=== PATIENT | male | born 1940 | race Caucasian/White ===

== ENCOUNTER 2016-12-30 11:12 | Outpatient (CLI) | payer MEDICARE, OTHER ==
[~2016-12-30] VITALS: Ht 167.6 cm; Wt 61.4 kg
--- NOTE | ~2016-12-30 | HEMODYNAMI ---
PATIENT:ELIUD POLO MEDICAL RECORD: [id number] : 44 LOCATION:[facility] ADMISSION DATE: 12/30/16 Generatedon:12/30/201613:35 Patient name: ELIUD POLO Patient #: [id number] SSN: : 1940 Date of study: 12/30/2016 Page: Of Hemodynamic Procedure Report Patient Data Patient Demographics Procedure consent was obtained First Name: ELIUD Gender: Male Last Name: CHRIST : 1940 [facility] Initial: MILTON Age: 76 year(s) Patient #: [id number] Race: Unknown Additional ID: [id number] Contact details [address]: [address] [place] [address] State: [place] City: [place] Zip code: [address] Past Medical History Allergies: No known allergies Admission Admission Data Admission Date: 12/30/2016 Admission Time: 11:12 Lab Results Lab Result Date: 12/30/2016 Lab Result Time: 0:00 Biochemistry Name Units Result Min Max BUN mg/dl 21 --(----)-* 7 18 Creatinine mg/dl 1.4 --(----)*- 0.6 1.3 CBC Name Units Result Min Max Hemoglobin g/dl 11.2 *-(----)-- 13.5 17.5 Procedure Procedure Types Cath Procedure Diagnostic Procedure LHC LH w/Coronaries Miscellaneous Procedures Moderate Sedation up to 15 minutes Procedure Description Procedure Date Procedure Date: 12/30/2016 Procedure Start Time: 13:22 Procedure End Time: 13:29 Procedure Staff Name Function Patricio Tripp MD Performing Physician Merry Mustafa RN Nurse Luis A Gaona RT Monitor Refugio Sanchez RT Scrub Procedure Data Cath Procedure Fluoroscopy Diagnostic fluoroscopy Total fluoroscopy Time: 1.9 time: 1.9 min min Diagnostic fluoroscopy Total fluoroscopy dose: 306 dose: 306 mGy mGy Contrast Material Contrast Material Type Amount (ml) Isovue 300 56 Entry Location Entry Primary Successful Side Size Upsize Upsize Entry Closure Alonzo ccessful Closure Location (Fr) 1 (Fr) 2 (Fr) Remarks Device Remarks Radial Right 6 Fr Mechanical artery Short Compression Diagnostic catheters Device Type Used For End Catheter Placement Terumo 5Fr Akira 110cm LV Angiography catheter Procedure Complications No complications Procedure Medications Medication Administration Route Dosage Oxygen NC 2 l/min Heparin Flush Bag added to field 2 bags (1000units/500ml NS) Lidocaine 2% added to field 20 Radial Cocktail added to field 1 syringe (Verapomil 2mg/Nitro 400mcg/Heparin 1500units) Fentanyl I.V. 50 mcg Versed I.V. 1 mg Radial Cocktail I.A. 1 syringe (Verapomil 2mg/Nitro 400mcg/Heparin 1500units) Fentanyl I.V. 50 mcg Versed I.V. 1 mg Hemodynamics Rest HGB: 11.2 (g/dl) Heart Rate: 64 (bpm) Pressure Samples Time Site Value (mmHg) Purpose Heart Use Rate(bpm) 13:24 LV 91/13,4 EDP 117 13:24 AO 107/36(62) Pullback 69 13:24 LV 114/0,4 Pullback 69 Gradients Valve Time Site 1 Site 2 Mean SEP/DFP Peak To Heart Use (mmHg) (sec/min) Peak Rate (mmHg) (bpm) Aortic 13:24 LV AO 6 19 7 69 114/0,4 107/36(62) Calculations Valve P-P Mean Valve Index Valve Source Name Gradient Area Flow (cm2) Aortic 7 6 7 6 Snapshots Pre Cath Intra NCS Post Cath Vital Signs Time Heart Resp SPO2 NIBP (mmHg) Rhythm Pain Sedation Rate (ipm) (%) Status Level (bpm) 12:57:43 64 20 99 162/68(123) NSR 0 (11) 10(A) , No pain 13:02:05 65 20 98 174/74(132) NSR 0 (11) 10(A) , No pain 13:06:33 58 18 100 154/63(119) NSR 0 (11) 10(A) , No pain 13:11:53 57 19 100 142/61(119) NSR 0 (11) 10(A) , No pain 13:16:11 64 17 98 154/61(124) NSR 0 (11) 10(A) , No pain 13:20:33 62 18 99 140/60(115) NSR 0 (11) 10(A) , No pain 13:24:53 78 16 100 122/51(85) NSR 0 (11) 9(A) , No pain 13:29:07 61 16 100 120/54(99) NSR 0 (11) 9(A) , No pain Medications Time Medication Route Dose Verified Delivered Reason Notes Effectiveness by by 12:59:30 Oxygen NC 2 l/min Patricio Merry Per [facility] trent MD 12:59:37 Heparin Flush added 2 bags Patricio Patricio used for Bag to [place] procedure (1000units/500ml field MD PARK NS) 12:59:44 Lidocaine 2% added 20ml Patricio Patricio used for to vial [place] procedure field MD PARK 12:59:50 Radial Cocktail added 1 Patricio Patricio used for (Verapomil to syringe [place] procedure 2mg/Nitro field MD PARK 400mcg/Heparin 1500units) 13:21:47 Fentanyl I.V. 50 mcg Patricio Merry for sedation [facility] Mustafa RN, MD 13:21:57 Versed I.V. 1 mg Patricio Merry for sedation [facility] Mustafa RN, MD 13:23:24 Radial Cocktail I.A. 1 Patricio Patricio for (Verapomil syringe Qasim [place] vasodilation 2mg/Ovi PARK MD 400mcg/Heparin 1500units) 13:23:58 Fentanyl I.V. 50 mcg Patricio Merry for sedation [facility] Mustafa RN, MD 13:24:03 Versed I.V. 1 mg Patricio Merry for sedation [facility] Du[facility] Mustafa RN, MD Procedure Log Time Note 12:13:52 Diagnostic Cath status Elective 12:13:54 Time tracking: Regular hours 12:13:58 Plan of Care:Hemodynamics will remain stable., Cardiac rhythm will remain stable., Comfort level will be maintained., Respiratory function will remain adequate., Patient/ family verbilizes understanding of procedure., Procedure tolerated without complication., Recovers from procedure without complications.. 12:35:08 Luis A Gaona RT(R) sent for patient. Start room use. 12:54:38 Patient received from Pre/Post Procedure Room to CCL 2 Alert and oriented. Tansferred to table in Supine position. 12:54:39 Warm blankets applied, and luis angel hugger turned on for patient comfort. 12:54:40 Correct patient and procedure confirmed by team. 12:54:41 Signed procedure consent form obtained from patient. 12:54:41 ECG and BP/O2 sat monitors applied to patient. 12:56:25 Vital chart was started 12:59:30 Oxygen 2 l/min NC was administered by Merry Mustafa RN; Per physician; 12:59:37 Heparin Flush Bag (1000units/500ml NS) 2 bags added to field was administered by Patricio Tripp MD; used for procedure; 12:59:44 Lidocaine 2% 20ml vial added to field was administered by Patricio Tripp MD; used for procedure; 12:59:50 Radial Cocktail (Verapomil 2mg/Nitro 400mcg/Heparin 1500units) 1 syringe added to field was administered by Patricio Trpip MD; used for procedure; 13:01:34 Baseline sample Acquired. 13:01:37 Rhythm: sinus rhythm 13:01:38 Full Disclosure recording started 13:03:56 Pre-procedure instructions explained to patient. 13:03:57 Pre-op teaching completed and patient verbalized understanding. 13:03:59 Family unavailable. 13:04:01 Patient NPO since Midnight. 13:04:07 Patient allergic to No known allergies 13:04:11 Is patient on blood thinner?No 13:04:13 Patient diabetic? No. 13:04:14 ----Pre-sedation anethsthesia assessment.---- 13:04:16 Previous problem with sedation/anesthesia? No ? 13:04:18 Snore? Yes 13:04:19 Sleep apnea? No 13:04:21 Deviated septum? No 13:04:25 Opens mouth fully? Yes 13:04:26 Sticks out tongue? Yes 13:04:27 Airway obstruction? No ? 13:04:33 Dentures? Yes in tight 13:05:03 Pre procedure: right dorsailis pedis pulse 1+ Palpable, but thready & weak; easily obliterated 13:05:05 Modified Marcus's test Ulnar < 7 seconds 13:05:08 Patient pain scale 0/10 ?. 13:05:12 IV patent on arrival in left hand with 0.9% NaCl at 10ml/hr. 13:06:48 Lab Result : BUN 21 mg/dl 13:06:48 Lab Result : Creatinine 1.4 mg/dl 13:06:48 Lab Result : Hemoglobin 11.2 g/dl 13:06:58 Right Radial & Right Groin area was prepped with chlora-prep and draped in sterile fashion 13:06:59 Lab results completed and on chart. 13:07:00 Alarms reviewed by R. N. 13:07:01 Sharps counted by scrub and verified by R.N. 13:07:39 Use device set Radial Dx 13:07:40 Acist Syringe opened to sterile field. 13:07:40 Medline Cath Pack opened to sterile field. 13:07:41 Bag Decanter opened to sterile field. 13:07:41 Terumo 6Fr Slender Glidesheath opened to sterile field. 13:07:41 St Anam 260cm J .035 wire opened to sterile field. 13:07:42 Acist Hand Control opened to sterile field. 13:07:42 Acist Manifold opened to sterile field. 13:07:43 Tegaderm 4 x 4 opened to sterile field. 13:07:43 MBrace Wrist Support opened to sterile field. 13:19:43 Zero performed for pressure channel P1 13:20:52 --------ALL STOP TIME OUT------ 13:20:52 Final Timeout: patient, procedure, and site verified with staff and physician. All members of the team are in agreement. 13:20:55 Right Radial & Right Groin site verified by team. 13:20:57 Physical assessment completed. ASA score P 2 - A patient with mild systemic disease as per Patricio Tripp MD. 13:21:01 Sedation plan: IV Moderate Sedation Versed, Fentanyl 13:21:47 Fentanyl 50 mcg I.V. was administered by Merry Mustafa RN; for sedation; 13::57 Versed 1 mg I.V. was administered by Merry Mustafa RN; for sedation; 13:22:29 Procedure started. 13:22:55 Local anesthetic to right radial artery with Lidocaine 2% by Patricio Tripp MD.INITIAL ACCESS ONLY 13:23:13 A 6 Fr Short sheath was inserted into the Right Radial artery 13:23:23 A Terumo 5Fr Akira 110cm catheter was advanced over the wire and used for LV Angiography. 13:23:24 Radial Cocktail (Verapomil 2mg/Nitro 400mcg/Heparin 1500units) 1 syringe I.A. was administered by Patricio Tripp MD; for vasodilation; 13:23:26 LV angiography performed. 13::28 LV gram done using MORENO 13::32 Injector settings: Ml/sec: 7, Volume: 15, 13::33 LV hemodynamics recorded. 13::58 Fentanyl 50 mcg I.V. was administered by Merry Mustafa RN; for sedation; 13:24:03 Versed 1 mg I.V. was administered by Merry Mustafa RN; for sedation; 13::58 EF : 55 % 13:25:48 LCA angiography performed. 13:27:42 RCA angiography performed. 13:27:43 Catheter removed. 13::48 Contrast amount:Isovue 300 56ml. 13:27:54 Sheath removed intact; hemostasis achieved with Mechanical Compression to the Right Radial artery. 13:28:03 Terumo TR Band Standard opened to sterile field. 13:28:05 Procedure ended.(Physican Out) 13:28:17 Fluoroscopy time 01.90 minutes. 13::24 Fluoroscopy dose: 306 mGy 13::24 Flurop Dose total: 306 13::26 Sharps counted by scrub and verified by R.N. 13:28:28 TR band inflated with 10cc of air. 13:28:37 Post right radial artery:stable 13:28:38 Post Procedure Pulses reassessed and unchanged 13:28:48 Post procedure: right radial pulse 1+ Palpable, but thready & weak; easily obliterated. 13:28:51 Post procedure rhythm: sinus rhythm 13:28:53 Post procedure instruction explained to patient.Patient verbalizes understanding. 13:29:12 Procedure and supply charges have been captured, reviewed, submitted and are correct. 13::29 Procedure Complication : No complications 13::31 Vital chart was stopped 13::31 See physician's report for complete and final results. 13::33 Report given to Pre/Post Procedure Room. 13:29:37 Patient transfered to Pre/Post Procedure Room with Stretcher. 13:29:39 Procedure ended. 13:29:39 Full Disclosure recording stopped 13:29:43 End room use (Document Last) Device Usage Item Name Manufacture Quantity Catalog Hospital Part Current Minimal Lot# / Number Charge Number Stock Stock Serial# Code Acist Acist 1 [id number] [id number] 172464 587357 20 Syringe [employer] Inc Medline Cardinal 1 [id number] 148707 06806 225272 5 Cath Pack Health Bag Microtek 1 2002S 159603 78535 588310 5 Decanter [employer]. Terumo 6Fr Terumo 1 [id number] 424226 143330 840474 [address] St Anam 1 476436 255217 177734 201399 30 260cm J .035 wire Acist Hand Acist 1 97444 044917 537155 216862 5 Control Medical Systems Inc Acist Acist 1 16575 821155 041872 037821 5 Manifold Medical Systems Inc Tegaderm 4 3M 1 1626W 539027 988292 116423 5 x 4 MBrace Advanced 1 140-0250-00 610791 38205 177834 5 Wrist Vascular Support Dynamics Terumo 5Fr Terumo 1 41-2822 227408 238305 948813 5 Akira 110cm catheter Terumo TR Terumo 1 [id number] 506205 547098 818027 40 Band Standard Signature Audit [place] Stage Time Signature Unsigned Intra-Procedure 12/30/2016 Luis A Gaona 1:35:10 PM RT(R) Signatures Monitor : Luis A Gaona RT Signature : Date : Time : [facility] [address] [place] [address]
[~2016-12-30 11:12] MED LIST: CARAFATE1 G PO; CELEXA20 MG PO; COREG25 MG PO; LISINOPRIL10 MG PO; NORVASC2.5 MG PO; PLAVIX75 MG PO; PROTONIX40 MG PO; ZOCOR40 MG PO
[2016-12-30] MEDS ORDERED: COREG 3.1253.125 MG PO (11:44)
[2016-12-30 11:50] VITALS: BP 173/66; Ht 167.6 cm; Wt 61.4 kg
[2016-12-30 12:11] LABS: BASOPHILS 0.2 % (0-2); EOSINOPHILS 3.7 % (0-7); HEMOGLOBIN 11.2 g/dL (13.5-17.5); IMMATURE GRANULOCYTES 0.4 % (0-5); LYMPHOCYTES 24.1 % (15-50); MCH 31.9 pg (26.0-34.0); MCHC 32.9 g/dL (31.0-37.0); MCV 96.9 fL (80.0-100.0); MEAN PLATELET VOLUME 10.7 fL (7.4-10.4); MONOCYTES 7.4 % (2-11); NEUTROPHILS 64.2 % (40-80); RBC 3.51 10x6/uL (4.20-6.10); RDW 13.4 % (11.5-14.5); WBC 5.4 10x3/uL (4.8-10.8)
[2016-12-30 12:12] LABS: PLATELET COUNT 125 10x3/uL (130-400)
[2016-12-30 12:27] LABS: ANION GAP 10.1 mmol/L (8-16); CALCIUM 9.3 mg/dL (8.5-10.1); CARBON DIOXIDE 29.8 mmol/L (21.0-32.0); CREATININE - SERUM 1.4 mg/dL (0.6-1.3); POTASSIUM - SERUM 3.9 mmol/L (3.5-5.1)
--- NOTE | 2016-12-30 14:01 | NUR ---
RESTING WITH EYES CLOSED, TR BAND INTACT, NO BLEEDING
--- NOTE | 2016-12-30 14:30 | NUR ---
TR BAND INTACT, NO BLEEDING AT SITE-RIGHT WRIST
--- NOTE | 2016-12-30 15:50 | NUR ---
TR BAND OFF, 2X2 AND TEGADERM APPLIED TO SITE, NO HEMATOMA OR BLEEDING NOTED, BRACE APPLIED, WRITTEN AND VERBAL INSTRUCTIONS GIVEN TO PT AND VERBAL UNDERSTANDING NOTED. D'C HOME WITH FAMILY
--- NOTE | 2016-12-31 08:26 | HP ---
PATIENT: ELIUD POLO MEDICAL RECORD: [id number] ACCOUNT: [id number] LOCATION:[facility] : 42 ADMISSION DATE: 12/30/16 HISTORY AND PHYSICAL EXAMINATION HISTORY OF PRESENT ILLNESS: A 76-year-old gentleman with a known history of coronary artery disease, status post intervention, underwent intervention approximately 1 year ago, underwent a cardiac stress study that showed a ____ inferiorly with continued symptomatology. He is being put forth for angiography. PAST MEDICAL HISTORY: 1. History of hypertension. 2. Coronary artery disease. 3. Hypertension. 4. Dyslipidemia. 5. Gastroesophageal reflux disease. SOCIAL HISTORY: Quit smoking several years back. MEDICATIONS: Include amlodipine 2.5 mg daily, atorvastatin 40 mg daily, carvedilol 3.125 mg daily, HCTZ 12.5 mg daily, lisinopril 10 mg daily and Protonix 40 mg daily. PHYSICAL EXAMINATION: GENERAL: A pleasant gentleman in no acute distress, appears stated age. HEENT: Normocephalic, atraumatic. NECK: No JVD or bruit. HEART: Regular. LUNGS: Ricks clear. ABDOMEN: Soft, nontender. EXTREMITIES: Pulse 2+ with no edema. DIAGNOSTIC DATA: ECG is without acute change. Nuclear stress testing is abnormal as described above. PLAN: For angiography. TRANSINT:[id number] Voice Confirmation ID: [id number] DOCUMENT ID: [id number] NATA CASTANEDA MD at 0826 CC: [id number] DICTATION DATE: 12/30/16 1333 [employer] INSPECTOR: 12/30/16 1409 [facility] CLI 12/30/16 [place] [id number] [place] [id number]
--- NOTE | 2016-12-31 08:26 | OP ---
PATIENT NAME: ELIUD POLO MEDICAL RECORD: [id number] :44 LOCATION:D.CAT ADMISSION DATE: SURGEON: NATA CASTANEDA MD DATE OF OPERATION: 12/30/2016 PROCEDURES: Left heart catheterization, selective coronary angiography, right radial approach. CATHETERS: A 5-[place] sheath, [place] catheter. The procedure was tolerated and the patient returned to the tafoya, sheath removed. Adequate hemostasis was obtained. TR band was placed. FINDINGS: Left ventriculography in 30-degree MORENO view: Normal wall motion, normal systolic function. CORONARY ANATOMY: LEFT MAIN: Left main is free of disease. LAD: Area of previous stenting is widely patent with no evidence of restenosis and no progression of hopi disease. CIRCUMFLEX: Free of disease. RIGHT CORONARY ARTERY: Area of previous stenting is widely patent. No evidence of restenosis. No progression of hopi disease. TRANSINT:[id number] Voice Confirmation ID: [id number] DOCUMENT ID: [id number] NATA CASTANEDA MD at 0826 CC: [id number] DICTATION DATE: 12/30/[address] MAN: 12/30/16 2348 [facility] CLI 12/30/16 [facility] [address] [place] [address]
== END 2016-12-30 16:00 | disposition home or self-care (01) ==
LOC: D.CATH 11:12
PROVIDERS: Internal Medicine Interventional Cardiology
DX: I25.10 Atherosclerotic heart disease of native coronary artery without angina pectoris (principal); I10 Essential (primary) hypertension; E78.5 Hyperlipidemia, unspecified; K21.9 Gastro-esophageal reflux disease without esophagitis; Z01.812 Encounter for preprocedural laboratory examination

== ENCOUNTER → 2017-06-10 12:04 | Outpatient (CLI) | payer MEDICARE, OTHER ==
[2016-12-30 11:50] VITALS: BMI 21.8
[~2017-06-10 12:04] MED LIST changes: +COREG 3.1253.125 MG PO
[2017-06-10 12:28] LABS: BASOPHILS 0 % (0-2); EOSINOPHILS 0.3 % (0-7); LYMPHOCYTES 45.3 % (15-50); MCH 33.5 pg (26.0-34.0); MCHC 33.3 g/dL (31.0-37.0); MCV 100.4 fL (80.0-100.0); MEAN PLATELET VOLUME 10.2 fL (7.4-10.4); MONOCYTES 11.7 % (2-11); NEUTROPHILS 42.7 % (40-80); PLATELET COUNT 119 10x3/uL (130-400); RBC 2.69 10x6/uL (4.20-6.10); RDW 14.7 % (11.5-14.5); WBC 3.1 10x3/uL (4.8-10.8)
[2017-06-10 12:45] LABS: ALBUMIN 3.2 g/dL (3.4-5.0); ANION GAP 13.8 mmol/L (8-16); BILIRUBIN - TOTAL 0.37 mg/dL (0.2-1.3); CARBON DIOXIDE 25.6 mmol/L (21.0-32.0); CREATININE - SERUM 1.2 mg/dL (0.6-1.3); POTASSIUM - SERUM 4.4 mmol/L (3.5-5.1); PROTEIN - SERUM 8.9 g/dL (6.4-8.2)
== END | disposition home or self-care (01) ==
LOC: D.LABREF 12:04
PROVIDERS: Family Medicine
DX: C08.9 Malignant neoplasm of major salivary gland, unspecified (principal)